=== PATIENT | female | born 1950 | race Hispanic/Latino ===

== ENCOUNTER → 2019-11-23 | Day surgery (SDC) | payer MEDICARE, OTHER ==
[2019-11-18 15:33] LABS: BASOPHILS # (AUTO) 0.1 (0.0-0.1); BASOPHILS % 0.6 % (0.0-1.0); EOSINOPHILS # (AUTO) 0.2 (0.0-0.4); EOSINOPHILS % 2.4 % (0.0-6.0); HEMATOCRIT 39.9 % (34.2-44.1); LYMPHOCYTES # (AUTO) 2.7 (1.0-3.2); LYMPHOCYTES % 32.3 % (18.0-39.1); MEAN CORPUSCULAR HEMOGLOBIN 30.3 pg (28-32); MEAN CORPUSCULAR HGB CONC 32.6 g/dL (31-35); MONOCYTES # (AUTO) 0.8 (0.2-0.8); MONOCYTES % 9.8 % (4.4-11.3); NEUTROPHILS # (AUTO) 4.6 (2.1-6.9); NEUTROPHILS % 54.5 % (38.7-80.0); PLATELET COUNT 298 x10e3/uL (140-360); RED BLOOD COUNT 4.29 x10e6/uL (3.6-5.1); RED CELL DISTRIBUTION WIDTH 12.4 % (11.7-14.4)
--- NOTE | 2019-11-18 16:21 | Diagnostic Imaging Report ---
EXAM: CHEST 2 VIEWS DATE: 11/18/2019 3:40 PM INDICATION: Pre-operative evaluation COMPARISON: None FINDINGS: The trachea is midline. The lungs are symmetrically expanded without evidence for large focal consolidation, pneumothorax, or significant pleural effusion. The cardiomediastinal silhouette and pulmonary vasculature are within normal limits. Cervical fusion hardware noted. No acute osseous abnormality is identified. The surrounding soft tissues are unremarkable. IMPRESSION: No acute cardiopulmonary process identified. Signed by: Dr. Randal Pryor MD on 11/18/2019 4:18 PM
[~2019-11-23] MED LIST: ATORVASTATIN CA10 MG PO; BACLOFEN10 MG PO; CEFAZOLIN SOD 1 GM/NS 50ML 100 ML IV ONE; CITALOPRAM HBR20 MG PO; CYMBALTA30 MG PO; DEXAMETHASONE SOD PHOS INJ 4 MG/ML VIAL ONE; DICYCLOMINE HCL20 MG PO; DOCUSATE SODIU100 MG PO; EPINEPHRINE 1 MG/ML 30ML VIAL ONE; FENTANYL CITRATE/PF 100MCG/2 ML INJ ONE; FLUOXETINE HCL40 MG PO; KETOROLAC TROMETHAMINE 30 MG/ML VIAL ONE; LEVOTHYROXINE75 MCG PO; LEVOTHYROXINE88 MCG PO; LIDOCAINE 2% /EPINEPHRINE 20 ML SDV INJ ONE; LIDOCAINE HCL 2% LOCAL INJ 5 ML SDV VIAL INJ ONE; MEPERIDINE HCL INJ 25 MG/ML VIAL ONE; MIDAZOLAM HCL 2 MG/2 ML VIAL ONE; MYRBETRIQ25 MG PO; ONDANSETRON HCL INJ 2MG/ML 2ML 2 MG/ML VIAL ONE; OXYBUTYNIN CHLOR5 MG PO; PANTOPRAZOLE SO40 MG PO; PROPOFOL IV EMULSION 10 MG/ML 20 ML VIAL ONE; ROCURONIUM BROMIDE 10 MG/ML 5ML VIAL IV ONE; ROPIVACAINE 0.5% 5 MG/ML 30 ML SDV ONE; SEVOFLURANE INHAL SOLN 250 ML PEN BTL ONE
[2019-11-23 13:10] VITALS: BP 118/70
--- NOTE | 2019-11-28 20:35 | Operative Report ---
DATE OF PROCEDURE: 11/23/2019 SURGEON: Alok Britt MD PREOPERATIVE DIAGNOSES: Left shoulder labral tear, left shoulder impingement. POSTOPERATIVE DIAGNOSES: Left shoulder synovitis, left shoulder labral tear, left shoulder impingement. OPERATIONS AND PROCEDURES PERFORMED: The patient underwent left shoulder exam under anesthesia, left shoulder arthroscopy, left shoulder arthroscopic debridement of synovitis, left shoulder arthroscopic biceps tenodesis, and a left shoulder arthroscopic subacromial decompression and acromioplasty. HEADER SET UP OPERATOR: There was no greenhouse assistant. ANESTHESIA: A regional block plus general anesthesia. IV FLUIDS: As per the anesthesia record. BRIEF DESCRIPTION OF THE PATIENT'S OPERATIVE PROCEDURE: Ms. Gonzalez was taken to the operating room and placed in supine position on the operating table. Following induction of general anesthesia as well as endotracheal intubation, the patient's left upper extremity was examined under anesthesia. She was found to have a normal-appearing shoulder. Passive range of motion of the shoulder joint was full. There was no evidence of instability. The patient's shoulder and upper extremity were prepped and draped in surgical fashion. Standard posterior lateral and anterior portals were created without difficulty. The scope was placed in the shoulder joint atraumatically. Examination of the glenohumeral articulation demonstrated no significant evidence of chondromalacia. There were no loose bodies within the shoulder joint. There was diffuse synovitis within the shoulder. The rotator cuff was found to be intact. A probe was placed through the anterior portal and the biceps anchor was probed thoroughly. She was found to have disruption of the biceps anchor. The shaver was placed through the anterior portal and the synovitis was debrided. The undersurface of the rotator interval was debrided and sutures were shuttled through the rotator interval capturing the biceps tendon. The biceps tendon was then released from its insertion into the superior labrum. A shaver was then used to debride the labrum. The shoulder was then deflated with sterile normal saline. The scope was transferred to the subacromial space. A lateral portal was created to outside in technique. There were significant bursal inflammation in the subacromial space. A shaver was used to provide a bursectomy. Examination of the bursal surface of the rotator cuff demonstrated inflammation of the bursal surface, but no evidence of tearing. The sutures were identified in the anterior aspect of the shoulder joint. The biceps tenodesis was completed by tying the sutures over the rotator interval. There was a downward sloping acromion. The coracoacromial ligament was resected. An aggressive acromioplasty was performed at this time. The shoulder was then deflated with sterile normal saline. Each of the portal sites were closed. Sterile dressings were applied and the patient was provided a shoulder immobilizer, awakened, and taken to the Postanesthesia Care Unit in stable condition. MD LORENZO Mello/DILIP /[id number]
== END | disposition home or self-care (01) ==
LOC: OR 07:55
PROVIDERS: ATTEND Specialist
DX: S43.432A Superior glenoid labrum lesion of left shoulder, initial encounter (principal); M75.42 Impingement syndrome of left shoulder; M65.812 Other synovitis and tenosynovitis, left shoulder; M65.312 Trigger thumb, left thumb; G47.33 Obstructive sleep apnea (adult) (pediatric); R00.1 Bradycardia, unspecified; E78.00 Pure hypercholesterolemia, unspecified; X58.XXXA Exposure to other specified factors, initial encounter; Z01.810 Encounter for preprocedural cardiovascular examination; Z01.812 Encounter for preprocedural laboratory examination; Z01.818 Encounter for other preprocedural examination; Z11.59 Encounter for screening for other viral diseases; Z68.31 Body mass index [BMI] 31.0-31.9, adult
CPT/HCPCS: 36415; 71046; 85025; 93005; J0690; J1100; J1885; J2001; J2175; J2250; J2405; J2795; J3010; U0002

== ENCOUNTER 2020-01-17 10:58 | Outpatient (RCR) | payer MEDICARE, OTHER ==
[~2020-01-17 10:58] MED LIST changes: -CEFAZOLIN SOD 1 GM/NS 50ML 100 ML IV ONE; -DEXAMETHASONE SOD PHOS INJ 4 MG/ML VIAL ONE; -EPINEPHRINE 1 MG/ML 30ML VIAL ONE; -FENTANYL CITRATE/PF 100MCG/2 ML INJ ONE; -KETOROLAC TROMETHAMINE 30 MG/ML VIAL ONE; -LIDOCAINE 2% /EPINEPHRINE 20 ML SDV INJ ONE; -LIDOCAINE HCL 2% LOCAL INJ 5 ML SDV VIAL INJ ONE; -MEPERIDINE HCL INJ 25 MG/ML VIAL ONE; -MIDAZOLAM HCL 2 MG/2 ML VIAL ONE; -ONDANSETRON HCL INJ 2MG/ML 2ML 2 MG/ML VIAL ONE; -PROPOFOL IV EMULSION 10 MG/ML 20 ML VIAL ONE; -ROCURONIUM BROMIDE 10 MG/ML 5ML VIAL IV ONE; -ROPIVACAINE 0.5% 5 MG/ML 30 ML SDV ONE; -SEVOFLURANE INHAL SOLN 250 ML PEN BTL ONE
[2020-02-28] MEDS ORDERED: TRIAMCINOLONE A15 G3 TP (15:22)
[2020-02-28] MEDS ORDERED: VESICARE10 MG PO (15:22)
== END 2020-02-04 ==
LOC: OT 10:58
PROVIDERS: ATTEND Specialist
DX: S46.001D Unspecified injury of muscle(s) and tendon(s) of the rotator cuff of right shoulder, subsequent encounter (principal); M25.511 Pain in right shoulder; M25.611 Stiffness of right shoulder, not elsewhere classified; R53.1 Weakness

== ENCOUNTER 2020-01-20 10:41 | Emergency (ER) | payer MEDICARE, OTHER ==
[~2020-01-20] VITALS: Ht 162.6 cm; Wt 91.2 kg
[2020-01-20] MEDS ORDERED: SODIUM CHLORIDE 0.9% 500ML 500 ML IV STA (11:02)
--- NOTE | 2020-01-20 11:27 | Emergency Department Note ---
History of Present Illnes History of Present Illness Chief Complaint: Genitourinary History of Present Illness This is a 69 year old female Chief Complaint Comment Patient in from home with reports of lower abdominal/pelvic pain as well as burning with urination for the last 3 weeks. Patient states that she has been under the care of Dr. Ko for a UTI and has been on various antibiotics (macrobid for one) the whole time and has not had any resolution of her symptoms. Historian: Patient Arrival Mode: Car Metrology Engineer Required: No Onset (how long ago): month(s) Location: Lower pelvis Quality: Dull Radiation: Reports non-radiation Severity: mild Onset quality: gradual Duration (how long): month(s) Timing of current episode: constant Progression: unchanged Chronicity: chronic Context: Denies recent illness, Denies recent surgery Relieving factors: none Exacerbating factors: none Associated symptoms: Reports denies other symptoms Treatments prior to arrival: none Past Medical/Family History Physician Review I have reviewed the patient's past medical and family history. Any updates have been documented here. Past Medical History Recent Fever: No Clinical Suspicion of Infectio: No New/Unexplained Change in Ment: No Past Medical History: Hypothyroidism, Depression, GERD, Hyperlipedemia Other Medical History: IBS Past Surgical History: Cholecysctectomy Other Surgery: Left rotator cuff repair Neck surgery Review of Systems Review of Systems Constitutional: Reports no symptoms EENTM: Reports no symptoms Cardiovascular: Reports no symptoms Respiratory: Reports no symptoms Gastrointestinal: Reports as per HPI Genitourinary: Reports as per HPI, Reports dysuria Musculoskeletal: Reports no symptoms Integumentary: Reports no symptoms Neurological: Reports no symptoms Psychological: Reports no symptoms Endocrine: Reports no symptoms Hematological/Lymphatic: Reports no symptoms Physical Exam Related Data Allergies: Coded Allergies: No Known Allergies (Unverified , 03/23/16) Triage Vital Signs Vital Signs Date Time Temp Pulse Resp B/P (MAP) Pulse Ox O2 Delivery O2 Flow Rate FiO2 01/20/20 10:46 98.4 106 17 140/75 98 Room Air Vital signs reviewed: Yes Physical Exam CONSTITUTIONAL Constitutional: Present well-developed, Present well-nourished HENT HENT: Present normocephalic, Present atraumatic, Present oropharynx clear/moist, Present nose normal HENT L/R: Present left ext ear normal, Present right ext ear normal EYES Eyes: Reports PERRL, Reports conjunctivae normal NECK Neck: Present ROM normal PULMONARY Pulmonary: Present effort normal, Present breath sounds normal CARDIOVASCULAR Cardiovascular: Present regular rhythm, Present heart sounds normal, Present capillary refill normal, Present normal rate GASTROINTESTINAL Abdominal: Present soft, Present nontender, Present bowel sounds normal GENITOURINARY Genitourinary: Present exam deferred SKIN Skin: Present warm, Present dry MUSCULOSKELETAL Musculoskeletal: Present ROM normal NEUROLOGICAL Neurological: Present alert, Present oriented x 3, Present no gross motor or sensory deficits PSYCHOLOGICAL Psychological: Present mood/affect normal, Present judgement normal Results Laboratory Lab results reviewed: Yes Imaging Imaging results reviewed: Yes Assessment & Plan Medical Decision Making MDM 69 y.o F presents for burning with urination x months. Been on multiple abx for UTI. See's Dr. Ko. Exam benign. W/u including Ct labs show green urine but otherwise unremarkable. Will treat with fosfomycin 3g PO Q48hrs x 3 doses. She will f/u w/ Dr. Ko in clinic. Appropriate for DC. Reassessment Reassessment time: 11:26 Reassessment Well appearing, NAD Assessment & Plan Final Impression: (1) UTI (urinary tract infection) Depart Disposition: HOME, SELF-CARE Last Vital Signs Date Time Temp Pulse Resp B/P (MAP) Pulse Ox O2 Delivery O2 Flow Rate FiO2 01/20/20 10:46 98.4 106 17 140/75 98 Room Air Home Meds Reported Medications Atorvastatin Calcium (ATORVASTATIN CALCIUM) 10 Mg Tablet, 10 MG PO 2100, #30 TAB 11/18/19 Oxybutynin Chloride (OXYBUTYNIN CHLORIDE) 5 Mg Tablet, 5 MG PO BID, #30 TAB 11/18/19 Citalopram Hydrobromide (CITALOPRAM HBR) 20 Mg Tablet, 20 MG PO DAILY, TAB 11/18/19 Levothyroxine Sodium (LEVOTHYROXINE SODIUM) 88 Mcg Tablet, 88 MCG PO DAILY, #30 TAB 11/18/19 Pantoprazole Sodium* (PROTONIX) 40 Mg Tablet.dr, 40 MG PO DAILY, TAB 11/18/19 Dicyclomine Hcl (DICYCLOMINE HCL) 20 Mg Tablet, 20 MG PO QID, TAB 11/18/19 Medications in the ED Sodium Chloride 500 ml @ 0 mls/hr Q0M STAT IV ; Start 01/20/20 at 11:02; Stop 01/20/20 at 11:04; Status DC URIAH GRAVES MD Jan 20, 2020 11:27
[2020-01-20 11:29] LABS: BASOPHILS % 0.4 % (0.0-1.0); EOSINOPHILS # (AUTO) 0.3 (0.0-0.4); EOSINOPHILS % 3.3 % (0.0-6.0); HEMATOCRIT 39.2 % (34.2-44.1); HEMOGLOBIN 12.6 g/dL (12.0-16.0); LYMPHOCYTES # (AUTO) 2.6 (1.0-3.2); LYMPHOCYTES % 27.6 % (18.0-39.1); MEAN CORPUSCULAR HEMOGLOBIN 30.6 pg (28-32); MEAN CORPUSCULAR HGB CONC 32.1 g/dL (31-35); MEAN CORPUSCULAR VOLUME 95.1 fL (81-99); MONOCYTES # (AUTO) 0.8 (0.2-0.8); MONOCYTES % 9.1 % (4.4-11.3); NEUTROPHILS # (AUTO) 5.5 (2.1-6.9); NEUTROPHILS % 59.2 % (38.7-80.0); PLATELET COUNT 330 x10e3/uL (140-360); RED BLOOD COUNT 4.12 x10e6/uL (3.6-5.1); RED CELL DISTRIBUTION WIDTH 12.5 % (11.7-14.4)
[2020-01-20 11:53] LABS: CLARITY,URINE CLOUDY (CLEAR); COLOR,URINE GREEN (YELLOW)
[2020-01-20 11:54] LABS: LEUKOCYTE ESTERASE ,URINE SMALL (NEGATIVE); NITRITE,URINE NEGATIVE (NEGATIVE)
[2020-01-20 11:55] LABS: BILIRUBIN,URINE MODERATE (NEGATIVE); KETONES,URINE NEGATIVE (NEGATIVE); PROTEIN,URINE DIPSTICK NEGATIVE (NEGATIVE); URINE UROBILINOGEN 0.2 mg/dL (0.2 - 1)
[2020-01-20 11:56] LABS: BACTERIA,URINE RARE /HPF; EPITHELIAL CELLS,URINE FEW /LPF
[2020-01-20 11:58] LABS: ALANINE AMINOTRANSFERASE 18 IU/L (0-55); ALBUMIN/GLOBULIN RATIO 1.4 (0.8-2.0); ALKALINE PHOSPHATASE 84 IU/L (40-150); ANION GAP 13.6 mmol/L (8-16); BLOOD UREA NITROGEN 12 mg/dL (7-26); BUN/CREATININE RATIO 16 (6-25); CALCIUM 8.8 mg/dL (8.4-10.2); CARBON DIOXIDE 25 mmol/L (22-29); CHLORIDE 103 mmol/L (98-107); CREATININE, SERUM 0.75 mg/dL (0.57-1.11); EST GLOMERULAR FILTRATION RATE > 60 ML/MIN (60-); GLUCOSE 126 mg/dL (74-118); POTASSIUM 3.6 mmol/L (3.5-5.1); SODIUM 138 mmol/L (136-145)
[2020-01-20] MEDS ORDERED: SODIUM CHLORIDE 0.9% 50ML 50 ML ONE (12:25)
[2020-01-20] MEDS ORDERED: IOPAMIDOL 370 MG/ML 200 ML INFUS..BTL INJ ONE (12:25)
[2020-01-20] MEDS ORDERED: FOSFOMYCIN TROMETHAMINE 3 GM PACKET PO ONE (13:00)
--- NOTE | 2020-01-20 13:22 | Diagnostic Imaging Report ---
CT of the abdomen and pelvis, with contrast. History: UTI, abdominal pain. Comparison: MRCP report from 03/23/2016, images not available for direct comparison. Technique: Multidetector CT scanning of the abdomen and pelvis was performed from the level of the lung bases to the inferior pubic rami after intravenous administration of contrast. Coronal and sagittal multiplanar reformations were obtained. RADIATION DOSE: Total DLP: 623.80 mGy*cm Dose modulation, iterative reconstruction, and/or weight based adjustment of the mA/kV was utilized to reduce the radiation dose to as low as reasonably achievable. FINDINGS: There is minimal bibasilar atelectasis. The remaining visualized intrathoracic contents demonstrate no significant abnormalities. The liver is normal in size and attenuation. The gallbladder is surgically absent. Pneumobilia noted within the left hepatic lobe, which may relate to prior ERCP/ampulla manipulation. There is mild dilatation of the common without evidence for radiopaque stone. Findings may be secondary to reservoir phenomenon status post cholecystectomy. There are postsurgical changes of the GE junction from suspected gastric bypass. The spleen, pancreas, and bilateral adrenal glands are unremarkable. 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 There is no evidence for nephrolithiasis or hydronephrosis. No ureteral stone or dilatation is appreciated. The urinary bladder demonstrates no significant abnormalities. The uterus is surgically absent. No abnormal adnexal masses are identified. Please note evaluation of the bowel is limited without the use of enteric contrast material. There is minimal wall thickening noted of the descending colon without significant adjacent inflammatory change. The remaining visualized loops of small and large bowel demonstrate no evidence of obstruction or inflammation. There is no ascites or intraperitoneal free air. No abnormal enlarged lymph nodes are identified within the abdomen or pelvis. There is a small fat-containing umbilical hernia noted. There is mild anterolisthesis of L4 on L5. The osseous structures otherwise demonstrate no evidence for acute fracture or destructive process. The extraperineal soft tissues are unremarkable. IMPRESSION: Mild wall thickening noted of the descending colon which may be secondary to underdistention. A colitis could have a similar appearance. Horseshoe kidney. No evidence for nephrolithiasis or obstructive uropathy. Postsurgical changes from prior cholecystectomy, gastric bypass, and hysterectomy. Pneumobilia noted which may reflect sequela of prior ERCP. Mild dilatation of the common bile duct which may be secondary to reservoir phenomenon status post cholecystectomy. Signed by: Dr. Randal Pryor MD on 01/20/2020 1:19 PM
--- OUTSIDE RECORDS SUMMARY | 2020-01-20 13:23 | XMS REPORT | Continuity of Care Document ---
Author Author [facility] Organization [facility] Address [address] [place] [address] Phone Unavailable Care Team Providers Care Dog Walker Name Role Phone Justice Rivero DO PCP Tyrese CONTRERAS Attphys Unavailable Payers Payer Name Policy Type Policy Number Effective Date Expiration Date S ource Problems Condition Name Condition Details Condition Category Status Onset Date Resolution Date Last Treatment Date Treating Clinician Comments Source Cervical stenosis of spinal canal Cervical stenosis of spinal ca nal Disease Active 2017-02-06 00:00:00 [place] [facility] Spinal stenosis in cervical region Spinal stenosis in cervical r egion Disease Active 2017-02-05 00:00:00 [place] [facility] Allergies, Adverse Reactions, Alerts Allergy Name Allergy Type Status Severity Reaction(s) Onset Date Inacti ve Date Treating Clinician Comments Source No Known Allergies DA Active U 2020-01-14 00:00:00 [facility] Family History Family Member Diagnosis Comments Start Date Stop Date Source Natural father No Known Problems Rodriguez Gil Natural mother No Known Problems Rodriguez Gil Social History Social Habit Start Date Stop Date Quantity Comments Source Sex Assigned At Rodriguez Gil Tobacco use and exposure 2017-02-05 00:00:00 2017-02-05 00:00:00 [employer]oo correa used Issac Gil Alcohol intake 2017-02-05 00:00:00 2017-02-05 00:00:00 Current non-drinker of alcohol (finding) Issac Gil Smoking Status Start Date Stop Date Source Never smoker [facility] Medications Ordered Medication Name Filled Medication Name Start Date Stop Da te Current Medication? Ordering Clinician Indication Dosage Frequency Signature (SIG) Comments Components Source levothyroxine (SYNTHROID) 88 mcg tablet 2017-02-06 16:03:39 Yes 88ug QD Take 88 mcg by mouth every morning. Rox [facility] DULoxetine (CYMBALTA) 60 MG capsule 2017-02-06 16:03:39 Yes 60mg QD Take 60 mg by mouth daily. Issac Gil acetaminophen-codeine (TYLENOL WITH CODEINE #3) 300-30 mg pe r tablet 2017-02-06 16:03:39 Yes 1{tbl} Q4H Take 1 tablet by mouth every 4 (four) hours as needed for moderate pain. Louis Acevesist methocarbamol (ROBAXIN) 500 MG tablet 2017-02-06 16:03:39 Yes 500mg Q.25D Take 500 mg by mouth 4 (four) times a day. Issac Gil docusate sodium (COLACE) 100 MG capsule 2017-02-06 16:03:39 Yes 100mg Q.5D Take 100 mg by mouth 2 (two) times a day. Issac Gil oxybutynin (DITROPAN) 5 MG tablet 2017-02-06 16:03:39 Ye s 5mg Q.[id number] Take 5 mg by mouth 3 (three) times a day. Issac Gil lansoprazole (PREVACID) 15 MG capsule 2017-02-06 16:03:39 Y es 15mg QD Take 15 mg by mouth daily. Issac Mendez dist atorvastatin (LIPITOR) 10 MG tablet 2017-02-06 16:03:39 Yes 10mg QD Take 10 mg by mouth daily. Issac Gil Procedures This patient has no known procedures. Plan of Care Planned Activity Planned Date Details Comments Source Future Scheduled Test 2019-11-05 00:00:00 INFLUENZA VACCINE [code = INFLUENZA VACCINE] Issac Gil Future Scheduled Test 2017 00:00:00 65+ PNEUMOCOCCAL V ACCINE (1 of 1 - PPSV23) [code = 65+ PNEUMOCOCCAL VACCINE (1 of 1 - PPSV23)] Issac Gil Future Scheduled Test 2002 00:00:00 BREAST CANCER SCRE ENING [code = BREAST CANCER SCREENING] Issac Acevesist Future Scheduled Test 2002 00:00:00 COLONOSCOPY SCREEN ING [code = COLONOSCOPY SCREENING] [facility] Future Scheduled Test 2002 00:00:00 SHINGLES VACCINES (#1) [code = SHINGLES VACCINES (#1)] [facility] Results Test Description Test Time Test Comments Results Result Comments Source URINALYSIS COMPLETE 2020-01-14 10:41:00 Test Item UA COLOR (test code = COLU) LIGHT YELLOW YELLOW UA APPEARANCE (test code = APPU) SLIGHT CLOUDY CLEAR A UA GLUCOSE DIPSTICK (test code = DGLUU) norm mg/dL NEGATIVE UA BILIRUBIN DIPSTICK (test code = BILU) NEGATIVE mg/dL NEGATIVE UA KETONE DIPSTICK (test code = KETU) neg mg/dL NEGATIVE UA SPECIFIC GRAVITY (test code = SGU) 1.010 1.001-1.035 UA BLOOD DIPSTICK (test code = ABDOULAYE) 10 (Trace) Des/uL NEGATIVE A UA PH DIPSTICK (test code = JUSTIN) 7.0 5.0-8.0 UA PROTEIN DIPSTICK (test code = PROU) neg mg/dL Neg-15 UA UROBILINIOGEN DIPSTICK (test code = URO) 1 mg/dL 0.0-0.2 A UA NITRITE DIPSTICK (test code = LAMBERTO) NEGATIVE NEGATIVE UA LEUKOCYTE ESTERASE DIPSTICK (test code = LEUU) 500 Ike/uL (3+) u L NEGATIVE A UA WBC (test code = WBCU) 10-20 per HPF 0-5 A UA RBC (test code = RBCU) 0-3 per HPF 0-5 UA EPITHELIAL CELLS (test code = EPIU) Many (>10/hpf) per HPF Few A UA BACTERIA (test code = BACU) MANY per HPF NONE A URINALYSIS W/O [id number] 10:41:00* Test Item Value Reference Range Interpretation Comments UA MICROSCOPIC NEEDED? (test code = UAMICRO) YES URINALYSIS [id number] 10:33:00* Test Item Value Reference Range Interpretation Comments UA COLOR (test code = COLU) LIGHT YELLOW YELLOW UA APPEARANCE (test code = APPU) SLIGHT CLOUDY CLEAR A UA GLUCOSE DIPSTICK (test code = DGLUU) norm mg/dL NEGATIVE UA BILIRUBIN DIPSTICK (test code = BILU) NEGATIVE mg/dL NEGATIVE UA KETONE DIPSTICK (test code = KETU) neg mg/dL NEGATIVE UA SPECIFIC GRAVITY (test code = SGU) 1.010 1.001-1.035 UA BLOOD DIPSTICK (test code = ABDOULAYE) 10 (Trace) Des/uL NEGATIVE A UA PH DIPSTICK (test code = JUSTIN) 7.0 5.0-8.0 UA PROTEIN DIPSTICK (test code = PROU) neg mg/dL Neg-15 UA UROBILINIOGEN DIPSTICK (test code = URO) 1 mg/dL 0.0-0.2 A UA NITRITE DIPSTICK (test code = LAMBERTO) NEGATIVE NEGATIVE UA LEUKOCYTE ESTERASE DIPSTICK (test code = LEUU) 500 Ike/uL (3+) u L NEGATIVE A UA WBC (test code = WBCU) per HPF 0-5 UA RBC (test code = RBCU) per HPF 0-5 UA EPITHELIAL CELLS (test code = EPIU) per HPF Few UA BACTERIA (test code = BACU) per HPF NONE URINALYSIS W/O [id number] 10:33:00* Test Item Value Reference Range Interpretation Comments UA MICROSCOPIC NEEDED? (test code = UAMICRO) YES URINALYSIS [id number] 10:33:00* Test Item Value Reference Range Interpretation Comments UA COLOR (test code = COLU) LIGHT YELLOW YELLOW UA APPEARANCE (test code = APPU) SLIGHT CLOUDY CLEAR A UA GLUCOSE DIPSTICK (test code = DGLUU) norm mg/dL NEGATIVE UA BILIRUBIN DIPSTICK (test code = BILU) NEGATIVE mg/dL NEGATIVE UA KETONE DIPSTICK (test code = KETU) neg mg/dL NEGATIVE UA SPECIFIC GRAVITY (test code = SGU) 1.010 1.001-1.035 UA BLOOD DIPSTICK (test code = ABDOULAYE) 10 (Trace) Des/uL NEGATIVE A UA PH DIPSTICK (test code = JUSTIN) 7.0 5.0-8.0 UA PROTEIN DIPSTICK (test code = PROU) neg mg/dL Neg-15 UA UROBILINIOGEN DIPSTICK (test code = URO) 1 mg/dL 0.0-0.2 A UA NITRITE DIPSTICK (test code = LAMBERTO) NEGATIVE NEGATIVE UA LEUKOCYTE ESTERASE DIPSTICK (test code = LEUU) 500 Ike/uL (3+) u L NEGATIVE A UA WBC (test code = WBCU) per HPF 0-5 UA RBC (test code = RBCU) per HPF 0-5 UA EPITHELIAL CELLS (test code = EPIU) per HPF Few UA BACTERIA (test code = BACU) per HPF NONE URINALYSIS W/O [id number] 10:33:00* Test Item Value Reference Range Interpretation Comments UA MICROSCOPIC NEEDED? (test code = UAMICRO) YES CHEST 2 [id number] 16:17:00 [facility] [address] [place] [address] Patient Name: SHUBHAM DENIS MR #: [id number] : 1950 Age/Sex: 69/F Req #: [id number] Adm Physician: Ordered by: JEOVANY CONTRERAS MD Report #: [id number] Location: OR Room/Bed: Procedure: [id number] DX/CHEST 2 VIEWS Exam Date: 11/18/19 Exam Time: 1540 REPORT STATUS: Signed EXAM: CHEST 2 VIEWS DATE: 11/18/2019 3:40 PM INDICATION: Pre-operative evaluation COMPARISON: None FINDINGS: The trachea is midline. The lungs are symmetr ically expanded without evidence for large focal consolidation, pneumothorax, or significant pleural effusion. The cardiomediastinal silhouette and pulmo nary vasculature are within normal limits. Cervical fusion hardware noted. No acute osseous abnormality is identified. The surrounding soft tissues are unre markable. IMPRESSION: No acute cardiopulmonary process identified. Signed by: Dr. Randal Pryor MD on 11/18/2019 4:18 PM Dictated By: JOSEE HERNANDEZ MD 17 Trans cribed By: BARTOLO on 11/18/191617 COPY TO: JEOVANY CONTRERAS MD
--- OUTSIDE RECORDS SUMMARY | 2020-01-20 13:23 | XMS REPORT | Clinical Summary ---
Author Author [facility] Organization [facility] Address Unknown Phone Unavailable Care Team Providers Care Candy Roller Name Role Phone Justice Rivero DO PCP Allergies No Known Active Allergies Medications End Date Status Medication Sig Dispensed Refills Start Date Active levothyroxine (SYNTHROID) Take 88 mcg 0 88 mcg tablet by mouth every morning. Active DULoxetine (CYMBALTA) 60 Take 60 mg by 0 MG capsule mouth daily. Active acetaminophen-codeine Take 1 tablet 0 (TYLENOL WITH CODEINE #3) by mouth 300-30 mg per tablet every 4 (four) hours as needed for moderate pain. Active methocarbamol (ROBAXIN) Take 500 mg 0 500 MG tablet by mouth 4 (four) times a day. Active docusate sodium (COLACE) Take 100 mg 0 100 MG capsule by mouth 2 (two) times a day. Active oxybutynin (DITROPAN) 5 Take 5 mg by 0 MG tablet mouth 3 (three) times a day. Active lansoprazole (PREVACID) Take 15 mg by 0 15 MG capsule mouth daily. Active atorvastatin (LIPITOR) 10 Take 10 mg by 0 MG tablet mouth daily. Active Problems Problem Noted Date Cervical stenosis of spinal canal 02/06/2017 Spinal stenosis in cervical region 02/05/2017 Surgical History Surgery Date Site/Laterality Comments HYSTERECTOMY DISCECTOMY, CERVICAL, 02/05/2017 Spine Procedur e: ACDF C4-5, C5-6; Surgeon: Angeles Feliz WITH FUSION, ANTERIOR Cervical/N/A MD Mary; Lo cation: [facility]; Service: APPROACH Orthopedics; Laterality: N /A; Medical devices from this surgery are i n the Implants section. Medical History Medical History Date Comments PONV (postoperative nausea and vomiting) Disease of thyroid gland Sleep apnea USE CPAP GERD (gastroesophageal reflux disease) Elevated cholesterol Arthritis Peptic ulceration Family History Medical History Relation Name Comments No Known Problems Father No Known Problems Mother Relation Name Status Comments Father Mother Social History Date Tobacco Use Types Packs/Day Years Used Never Smoker Smokeless Tobacco: Never Used Drinks/Week oz/Week Comments Alcohol Use No Sex Assigned at Date Recorded Not on file Last Filed Vital Signs Not on file Plan of Treatment Health Maintenance Due Date Last Done Comments BREAST CANCER SCREENING 2002 COLONOSCOPY SCREENING 2002 SHINGLES VACCINES (#1) 2002 65+ PNEUMOCOCCAL VACCINE 2017 (1 of 1 - PPSV23) INFLUENZA VACCINE 11/05/2019 07/03/2011, 01/19/2009 Implants Device Identifier Shelf Expiration Date Model / Serial / L ot Implanted Type Area Manufactur er 11/04/2019 [id number] / [id number] / [id number] 7mm X 14mm X 11mm, Rti Lordotic Sr Bone Bilateral: RTI Cortical Block Spine Cervical SURGICAL Implanted: Qty: 1 on 02/05/2017 by Angeles Hernandez MD at [facility] 11/04/2019 [id number] / [id number] / [id number] 7mm X 14mm X 11mm, Rti Lordotic Sr Bone Anterior: S pine RTI Cortical Block Cervical SURGICAL Implanted: Qty: 1 on 02/05/2017 by Angeles Hernandez MD at [facility] [id number] / / 3.5 Self-Drilling Screw 13mm IPM N/A: Spine M EDTRONIC Variable - [id number] IMPLANT Cervical SOFAMOR Implanted: Qty: 6 on 02/05/2017 by [facility] Angeles Hernandez MD at [facility] [id number] / / NONE Zevo 41mm Plate - [id number] IPM N/A: Spine ME DTRONIC Implanted: Qty: 1 on 02/05/2017 by IMPLANT Cervical SOFAMOR Angeles Hernandez MD at [facility] 10/17/2018 [id number] / [id number] / [id number] Putty Dbm Dbx 1cc - Orthopedic N/A: Spine MUSCULOSKE [id number] - [id number] Trauma Cervical LETAL Implanted: Qty: 1 on 02/05/2017 by Implants TRA NSPLANT Angeles Hernandez MD at [facility] Results Not on fileafter 01/19/2019 Insurance Type Payer Benefit Subscriber ID Effective Phone Address Plan / Dates Group HMO HANH SCHAFER OPEN [id number] ACCESS/NET resent WORK Advance Directives For more information, please contact: [phone] Patient Legal Billing Clerk Explanation Type Date Recorded Advance Directives, 01/28/2017 3:08 PM Living Will and Medical Power of Centerless Grinder Tender
== END 2020-01-20 14:00 | disposition home or self-care (01) ==
LOC: ER 11:20
DX: R30.0 Dysuria (principal); N39.0 Urinary tract infection, site not specified; E78.5 Hyperlipidemia, unspecified; K21.9 Gastro-esophageal reflux disease without esophagitis; E03.9 Hypothyroidism, unspecified; F32.9 Major depressive disorder, single episode, unspecified
CPT/HCPCS: 36415; 74177; 80053; 81001; 83690; 85025; 87086; 99284; J7040; Q9967

== ENCOUNTER 2020-02-29 07:49 | Outpatient (RCR) | payer MEDICARE, OTHER ==
[~2020-02-29 07:49] MED LIST changes: +TRIAMCINOLONE A15 G3 TP; +VESICARE10 MG PO
== END 2020-03-05 ==
LOC: OT 07:49
PROVIDERS: ATTEND Specialist
DX: S46.001D Unspecified injury of muscle(s) and tendon(s) of the rotator cuff of right shoulder, subsequent encounter (principal); M25.511 Pain in right shoulder; M25.611 Stiffness of right shoulder, not elsewhere classified; R53.1 Weakness

== ENCOUNTER → 2020-03-05 | Day surgery (SDC) | payer MEDICARE, OTHER ==
[2020-02-29 10:46] LABS: BASOPHILS % 0.3 % (0.0-1.0); EOSINOPHILS # (AUTO) 0.1 (0.0-0.4); EOSINOPHILS % 0.9 % (0.0-6.0); HEMATOCRIT 40.4 % (34.2-44.1); HEMOGLOBIN 13.2 g/dL (12.0-16.0); LYMPHOCYTES # (AUTO) 1.5 (1.0-3.2); LYMPHOCYTES % 22.4 % (18.0-39.1); MEAN CORPUSCULAR HEMOGLOBIN 31.2 pg (28-32); MEAN CORPUSCULAR HGB CONC 32.7 g/dL (31-35); MEAN CORPUSCULAR VOLUME 95.5 fL (81-99); MONOCYTES # (AUTO) 0.4 (0.2-0.8); MONOCYTES % 6.5 % (4.4-11.3); NEUTROPHILS # (AUTO) 4.7 (2.1-6.9); NEUTROPHILS % 69.5 % (38.7-80.0); PLATELET COUNT 279 x10e3/uL (140-360); RED BLOOD COUNT 4.23 x10e6/uL (3.6-5.1)
[2020-02-29 11:01] LABS: ANION GAP 13.4 mmol/L (8-16); BLOOD UREA NITROGEN 14 mg/dL (7-26); BUN/CREATININE RATIO 18 (6-25); CALCIUM 9.4 mg/dL (8.4-10.2); CARBON DIOXIDE 26 mmol/L (22-29); CHLORIDE 105 mmol/L (98-107); CREATININE, SERUM 0.78 mg/dL (0.57-1.11); EST GLOMERULAR FILTRATION RATE > 60 ML/MIN (60-); GLUCOSE 129 mg/dL (74-118); POTASSIUM 4.4 mmol/L (3.5-5.1); SODIUM 140 mmol/L (136-145)
[~2020-03-05] MED LIST changes: +ACETAMINOPHEN/CODEINE 300MG - 30MG TAB ONE; +B&O 60MG R/S 60 MG SUPP PR ONE; +CEFTRIAXONE SOD 1 GM/NS 50 ML 50 ML IV ONE; +DEXAMETHASONE SOD PHOS INJ 4 MG/ML VIAL ONE; +IOPAMIDOL 300MG/ML 50ML INFUS..BTL IV ONE; +LIDOCAINE HCL 2% LOCAL INJ 5 ML SDV VIAL INJ ONE; +MIDAZOLAM HCL 2 MG/2 ML VIAL ONE; +ONDANSETRON HCL INJ 2MG/ML 2ML 2 MG/ML VIAL ONE; +PROPOFOL IV EMULSION 10 MG/ML 20 ML VIAL ONE; +SEVOFLURANE INHAL SOLN 250 ML PEN BTL ONE
[2020-03-05 08:35] VITALS: BP 126/68
== END | disposition home or self-care (01) ==
LOC: OR 05:40
PROVIDERS: ATTEND Urology
DX: N30.10 Interstitial cystitis (chronic) without hematuria (principal); N81.10 Cystocele, unspecified; N81.6 Rectocele; N95.2 Postmenopausal atrophic vaginitis; Q63.1 Lobulated, fused and horseshoe kidney; Q63.2 Ectopic kidney; K27.9 Peptic ulcer, site unspecified, unspecified as acute or chronic, without hemorrhage or perforation; K21.9 Gastro-esophageal reflux disease without esophagitis; M26.609 Unspecified temporomandibular joint disorder, unspecified side; I10 Essential (primary) hypertension; E78.5 Hyperlipidemia, unspecified; F32.9 Major depressive disorder, single episode, unspecified; Z01.810 Encounter for preprocedural cardiovascular examination; Z01.812 Encounter for preprocedural laboratory examination; Z01.818 Encounter for other preprocedural examination; Z20.828 Contact with and (suspected) exposure to other viral communicable diseases; Z87.01 Personal history of pneumonia (recurrent)
CPT/HCPCS: 36415; 52260; 71046; 74420; 80048; 85025; 93005; C1758; J0696; J1100; J2001; J2250; J2405; J2704; Q9967; U0002

== ENCOUNTER → 2020-04-05 | Outpatient (RCR) | payer MEDICARE, OTHER ==
[~2020-04-05] MED LIST changes: -ACETAMINOPHEN/CODEINE 300MG - 30MG TAB ONE; -B&O 60MG R/S 60 MG SUPP PR ONE; -CEFTRIAXONE SOD 1 GM/NS 50 ML 50 ML IV ONE; -DEXAMETHASONE SOD PHOS INJ 4 MG/ML VIAL ONE; -IOPAMIDOL 300MG/ML 50ML INFUS..BTL IV ONE; -LIDOCAINE HCL 2% LOCAL INJ 5 ML SDV VIAL INJ ONE; -MIDAZOLAM HCL 2 MG/2 ML VIAL ONE; -ONDANSETRON HCL INJ 2MG/ML 2ML 2 MG/ML VIAL ONE; -PROPOFOL IV EMULSION 10 MG/ML 20 ML VIAL ONE; -SEVOFLURANE INHAL SOLN 250 ML PEN BTL ONE
== END ==
LOC: OT 03-07 10:53
PROVIDERS: ATTEND Specialist
DX: M75.102 Unspecified rotator cuff tear or rupture of left shoulder, not specified as traumatic (principal); M75.22 Bicipital tendinitis, left shoulder